=== PATIENT | female | born 1995 | race Two or more races ===

== ENCOUNTER 2020-04-25 20:58 | Outpatient (CLI) | payer MEDICAID ==
[2020-04-25 21:37] LABS: APPEARANCE,URINE CLOUDY; BILIRUBIN,URINE NEGATIVE (NEGATIVE); COLOR,URINE YELLOW; GLUCOSE, URINE NEGATIVE (NEGATIVE); KETONES,URINE NEGATIVE (NEGATIVE); LEUKOCYTE ESTERASE,URINE LARGE (NEGATIVE); NITRITE,URINE NEGATIVE (NEGATIVE); PROTEIN,URINE NEGATIVE (NEGATIVE); URINE SPECIFIC GRAVITY 1.013; UROBILINOGEN,URINE NEGATIVE mg/dL (<2.0)
[2020-04-25 21:58] LABS: URINE AMPHETAMINES SCREEN NEGATIVE; URINE BARBITURATES SCREEN NEGATIVE; URINE BENZODIAZEPINES SCREEN NEGATIVE; URINE COCAINE SCREEN NEGATIVE; URINE MARIJUANA (THC) SCREEN NEGATIVE; URINE METHADONE SCREEN NEGATIVE; URINE PHENCYCLIDINE SCREEN NEGATIVE
--- NOTE | 2020-04-25 23:09 | Non Stress Test Report ---
Non Stress Test Datetime Report Generated by CPN: 04/25/2020 23:08 DEMOGRAPHIC EGA NST: 38.0 INDICATION Indication for Study (NST) Other: lc MONITORING Monitor Explained: Monitor Explained; Test Explained; Patient Verbalized Understanding Time on Monitor: 04/25/2020 21:20 Time off Monitor: 04/25/2020 21:44 NST Duration: 24 NST INTERVENTIONS NST Interventions: Reposition Patient Physician Notified NST: Dr Brambila BABY A: [id number] BABY A Movement : Present Contraction Frequency : 1-5 FHR Baseline : 130 Accelerations : 15X15 Decelerations : None Variability : Moderate 6-25bpm NST Review: Meets Criteria for Reactive NST NST Review and Verified By : JAMISON Small Results: Reactive NST REPORT Report Trigger: Send Report
== END 2020-04-25 23:06 | disposition home or self-care (01) ==
LOC: LC 20:58
PROVIDERS: ATTEND Obstetrics & Gynecology Gynecology
DX: Z34.93 Encounter for supervision of normal pregnancy, unspecified, third trimester (principal)
CPT/HCPCS: 59025; 80307; 81005

== ENCOUNTER 2020-04-30 23:14 | Inpatient (IN) | payer MEDICAID ==
[2020-04-30 23:56] LABS: APPEARANCE,URINE SLIGHTLY-CLOUDY; BILIRUBIN,URINE NEGATIVE (NEGATIVE); COLOR,URINE YELLOW; GLUCOSE, URINE NEGATIVE (NEGATIVE); KETONES,URINE NEGATIVE (NEGATIVE); LEUKOCYTE ESTERASE,URINE TRACE (NEGATIVE); NITRITE,URINE NEGATIVE (NEGATIVE); PROTEIN,URINE NEGATIVE (NEGATIVE); URINE SPECIFIC GRAVITY 1.015; UROBILINOGEN,URINE NEGATIVE mg/dL (<2.0)
[2020-05-01 00:17] LABS: URINE AMPHETAMINES SCREEN NEGATIVE; URINE BARBITURATES SCREEN NEGATIVE; URINE BENZODIAZEPINES SCREEN NEGATIVE; URINE COCAINE SCREEN NEGATIVE; URINE MARIJUANA (THC) SCREEN NEGATIVE; URINE METHADONE SCREEN NEGATIVE; URINE PHENCYCLIDINE SCREEN NEGATIVE
--- NOTE | 2020-05-01 00:49 | Non Stress Test Report ---
Non Stress Test Datetime Report Generated by CPN: 05/01/2020 00:48 DEMOGRAPHIC EGA NST: 38.5 INDICATION Indication for Study (NST) Other: LC URINE RESULTS Urine Protein, NST: Negative Urine Ketones - NST: Negative Urine Glucose - NST: Negative Urine Blood - NST: Negative MONITORING Monitor Explained: Monitor Explained; Test Explained; Patient Verbalized Understanding Time on Monitor: 04/30/2020 23:30 Time off Monitor: 05/01/2020 00:01 NST Duration: 31 NST INTERVENTIONS NST Interventions: PO Hydration Physician Notified NST: Gordon BABY A: [id number] BABY A Movement : Present Contraction Frequency : 3-10 FHR Baseline : 135 Accelerations : 15X15 Decelerations : None Variability : Moderate 6-25bpm NST Review: Meets Criteria for Reactive NST NST Review and Verified By : Elinor Polk RN Results: Reactive NST REPORT Report Trigger: Send Report
[2020-05-01] MEDS ORDERED: RINGERS SOLUTION,LACTATED 1,000 ML IV PRN (01:42)
[2020-05-01] MEDS ORDERED: OXYTOCIN/0.9 % SODIUM CHLORIDE 30 UNIT/500 ML RTUINJ ONE (01:44)
[2020-05-01] MEDS ORDERED: LIDOCAINE 1% INJ-PF (10 MG/ML) 30 ML SDV ONE ×2 (01:44→10:47)
[2020-05-01] MEDS ORDERED: OXYTOCIN 10 UNIT/ML VIAL ONE ×2 (01:44→10:47)
[2020-05-01] MEDS ORDERED: MISOPROSTOL 0.2 MG TABLET ONE ×2 (01:44→10:47)
[2020-05-01 02:35] LABS: ABSOLUTE BASOPHILS # (AUTO) 0.1 10^3/uL (0.0-0.2); ABSOLUTE EOSINOPHILS # (AUTO) 0.4 10^3/uL (0.0-0.6); ABSOLUTE LYMPHOCYTES (AUTO) 2.1 10^3/uL (0.5-4.7); ABSOLUTE MONOCYTES (AUTO) 1.2 10^3/uL (0.1-1.4); ABSOLUTE NEUT (AUTO) 6.6 10^3/uL (1.7-8.2); BASOPHILS % (AUTO) 0.7 % (0-2); EOSINOPHILS % (AUTO) 3.6 % (0-6); HEMATOCRIT 33.8 % (36.0-47.0); HEMOGLOBIN 11.3 g/dL (12.0-15.5); MEAN CORPUSCULAR HEMOGLOBIN 25.4 pg (27.0-33.4); MEAN CORPUSCULAR HGB CONC 33.4 g/dL (32.0-36.0); MEAN CORPUSCULAR VOLUME 76 fl (80-97); MONOCYTES % (AUTO) 11.7 % (3-13); PLATELET COUNT 187 10^3/uL (150-450); RED BLOOD COUNT 4.45 10^6/uL (3.72-5.28); RED CELL DISTRIBUTION WIDTH 14.9 % (11.5-14.0); TOTAL CELLS COUNTED % (AUTO) 100 %; WHITE BLOOD COUNT 10.3 10^3/uL (4.0-10.5)
[2020-05-01] MEDS ORDERED: OXYTOCIN/0.9 % SODIUM CHLORIDE 30 UNIT/500 ML RTUINJ IV PRN ×2 (06:42→11:24)
--- NOTE | 2020-05-01 07:02 | Admission Physical ---
Datetime Report Generated by CPN: 05/01/2020 07:02 CURRENT ADMISSION Chief Complaint: Uterine Contractions Indication for Induction: Not Applicable Admit Impression : Term, Intrauterine ; Active Labor; Intact Membranes Admit Plan: Admit to Unit; Initiate Labor Protocol ALLERGIES Medication Allergies: Yes Medication Allergies: ibuprofen/SV/Anaphylaxis (04/25/2020) Latex: No Latex Allergies OBSTETRICAL HISTORY EDC: 05/09/2020 00:00 : 5 Para: 4 Term: 4 : 0 SAB: 0 IAB: 0 Ectopic: 0 Livin Cesareans: 0 VBACs: 0 Multiple Births: 0 Gestational Diabetes: No Rh Sensitization: No Incompetent Cervix: No SOHA: No Infertility: No ART Treatment: No Uterine Anomaly: No IUGR: No Hx Previous C/S: No Macrosomia: No Hx Loss/Stillborn: No PIH: No Hx : No Placenta Previa/Abruption: No Depression/PP Depression: Yes PTL/PROM: No Post Hemorrhage: Yes Current Procedures: Ultrasound Obstetrical History Comments: G1: 05/2014 37 weeks IOL IUGR 4 lbs 11 oz female G2: 07/2016 38 weeks IOL IUGR 4 lbs 11 oz male retained placenta G3: 05/2017 38 weeks IOL IUGR 4 lbs 0 oz female G4: 06/2018 5 lbs 10 oz IOL IUGR male G5: current hx PPD no meds SEE RECORDS Alcohol: No Marijuana : No Cocaine: No Other Illicit Drugs: No Cigarettes: Never Smoker. 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: No Heart Disease: No Hosp/Surgery: No Autoimmune Disorder: No Anesthetic Complications: No Kidney Disease: No Abnormal Pap Smear: No Neuro/Epilepsy: No Psychiatric Disorders: No Other Medical Diseases: No Hepatitis/Liver Disease: No Significant Family History: No Varicosities/Phlebitis: No Trauma/Violence : No Thyroid Dysfunction: No Medical History Comments: hx depression no meds INFECTIOUS HISTORY Gonorrhea: No Genital Herpes: No Chlamydia: No Tuberculosis: No Syphilis: No Hepatitis: No HIV/AIDS Exposure: No Rash or Viral Illness: No HPV: No PHYSICAL EXAM General: Normal HEENT: Normal Neurologic: Normal Thyroid: Deferred Heart: Normal Lungs: Normal Breast: Deferred Back: Normal Abdomen: Normal Genitourinary Exam: Normal Extremities: Normal DTRs: Normal Pelvic Type: Adequate Vital Signs: Reviewed VAGINAL EXAM Dilatation: 5 Effacement: 60 Station: -2 Contraction Comments: q 4-5, now irreg MEMBRANES Membranes: Intact FETUS A EGA: 38.6 Monitoring: External US FHR- Baseline: 135 Variability: Moderate 6-25bpm Accelerations: 15X15 Decelerations: None FHR Category: Category I Estimated Weight (gm): 2773 Presentation: Vertex Admit Comment: 25yo G with h/o IUGR at term and largest baby was 5#10oz presents for regular contractions. Pt was evaluated then rechecked in 2 hours and significant cervical change noted. Admitted for labor likely protracted as contractions are irreg now after IVF but with cervical exam 5-6 and 4 previous deliveries would not recommend discharge. Admit to labor and delivery and augment with pitocin if needed. Unkown LMP dated by 18wks US. H/o depression - no meds. Admit for delivery. EFW on 04/21 was 2773 (18%) PLANS FOR LABOR AND DELIVERY Labor and Delivery: None Pain Management: None Feeding Preference: Both INFORMED CONSENT Informed Consent Obtained: Vaginal Delivery; Risks, Benefits and Alternatives Discussed Signature: with User ID: [email or web address]
[2020-05-01] MEDS ORDERED: NALBUPHINE HCL INJ 10 MG/1 ML AMPULE ONE (08:38)
[2020-05-01] MEDS ORDERED: NALBUPHINE HCL INJ 10 MG/1 ML AMPULE INJ ONE (08:41)
[2020-05-01] MEDS ORDERED: EPHEDRINE SULFATE INJ 50 MG/1 ML AMPULE ONE (10:40)
[2020-05-01] MEDS ORDERED: ROPIVACAINE HCL 0.2% INJ/PF (2 MG/ML) 20 ML SDV ONE (10:40)
[2020-05-01] MEDS ORDERED: FENTANYL/BUPIVACAINE/NS/PF 0 MCG/0 ML RTUINJ EPI ONE (10:40)
[2020-05-01] MEDS ORDERED: PSEUDOEPHEDRINE HCL 30 MG TABLET PO PRN (11:24)
[2020-05-01] MEDS ORDERED: NA PHOS,M-B/NA PHOS,DI-BA (ADULT) 133 ML ENEMA PR PRN (11:24)
[2020-05-01] MEDS ORDERED: BENZOCAINE/MENTHOL AEROSOL SPRAY 56 ML TOP PRN (11:24)
[2020-05-01] MEDS ORDERED: PROMETHAZINE HCL INJ 25 MG/1 ML VIAL IV PRN (11:24)
[2020-05-01] MEDS ORDERED: GLYCERIN/WITCH HAZEL LEAF 1 EACH MED..WIPE TP PRN (11:24)
[2020-05-01] MEDS ORDERED: ACETAMINOPHEN 650 MG SUPP.RECT PR PRN (11:24)
[2020-05-01] MEDS ORDERED: DIBUCAINE 1% OINTMENT 28 GM TP PRN (11:24)
[2020-05-01] MEDS ORDERED: PROMETHAZINE HCL 25 MG SUPP.RECT PR PRN (11:24)
[2020-05-01] MEDS ORDERED: PROMETHAZINE HCL 25 MG TABLET PO PRN (11:24)
[2020-05-01] MEDS ORDERED: ACETAMINOPHEN 325 MG TABLET PO PRN (11:24)
[2020-05-01] MEDS ORDERED: MAGNESIUM HYDROXIDE SUSP 30 ML UDCUP PO PRN (11:24)
[2020-05-01] MEDS ORDERED: DIPHENHYDRAMINE HCL 25 MG CAPSULE PO PRN (11:24)
[2020-05-01] MEDS ORDERED: ZOLPIDEM TARTRATE 5 MG TABLET PO PRN (11:24)
[2020-05-01] MEDS ORDERED: ACETAMINOPHEN WITH CODEINE #3 TABLET PO PRN (11:24)
[2020-05-01] MEDS ORDERED: MEASLES,MUMPS&RUBELLA VACC/PF 0.5 ML VIAL SUBCUT PRN (11:24)
[2020-05-01] MEDS ORDERED: DIPH/PERTUSS(ACELL)/TETANUS VAC/PF 0.5 ML SYR (>=10YO) IM PRN (11:24)
[2020-05-01] MEDS ORDERED: IBUPROFEN 800 MG TABLET PO SCH (11:30)
[2020-05-01] MEDS ORDERED: ACETAMINOPHEN WITH CODEINE #3 TABLET ONE (11:51)
[2020-05-01] MEDS ORDERED: BENZOCAINE/MENTHOL AEROSOL SPRAY 56 ML ONE (11:52)
[2020-05-01] MEDS: ACETAMINOPHEN WITH CODEINE #3 TABLET PO PRN ×2 (11:55→17:35)
--- NOTE | 2020-05-01 12:31 | Birth Certificate Data ---
Cert Data Datetime Report Generated by CPN: 05/01/2020 12:31 CERTIFICATE DATA Delivery Provider: Pilar Partida MD (04/25/2020 21:25:Kashif Esqueda RN) 47a. Care: Yes (04/25/2020 21:25:Nadia Rodriguez RN) 47b. Date of First Visit: 12/01/2019 00:00 (04/25/2020 21:25:Nadia Rodriguez RN) 47c. Date of Last Visit: 04/21/2020 00:00 (04/25/2020 21:25:Nadia Rodriguez RN) 47d. Number of Visits: 8 (04/25/2020 21:25:Nadia Rodriguez RN) 48a. Number of Prev Live Births: 4 (04/25/2020 21:25:Nadia Rodriguez RN) 48b. Now Livin (04/25/2020 21:25:Nadia Rodriguez RN) 48c. Live Births Now : 0 (04/25/2020 21:25:QS system process) 48d. Date of Last Live : 07/15/2018 00:00 (04/25/2020 21:25:Nadia Rodriguez RN) RISK FACTORS IN THIS 49a. Diabetes: No (04/25/2020 21:25:Nadia Rodriguez RN) 49b. Hypertension: No (04/25/2020 21:25:Nadia Rodriguez RN) 49c. Previous Births: 0 (04/25/2020 21:25:Nadia Rodriguez RN) 49d. Stillborns: No (04/25/2020 21:25:Nadia Rodriguez RN) 49d. IUGR: No (04/25/2020 21:25:Nadia Rodriguez RN) 49e. Infertility Treatment: No (04/25/2020 21:25:Nadia Rodriguez RN) 49f. Previous Cesareans: 0 (04/25/2020 21:25:Nadia Rodriguez RN) Mother's Height 50b. Height Inches: 65 (05/01/2020 01:45:QS system process) Mother's Weight 51b. Weight at Delivery (lbs): 130 (04/30/2020 23:25:QS system process) Infections Present/Treated 53a. Gonorrhea: No (04/25/2020 21:25:Nadia Rodriguez RN) Results this Hospital Visit : Negative (04/25/2020 21:25:Nadia Rodriguez RN) 53b. Syphilis: No (04/25/2020 21:25:Nadia Rodriguez RN) 53c. Chlamydia: No (04/25/2020 21:25:Nadia Rodriguez RN) Results this Hospital Visit: Negative (04/25/2020 21:25:Nadia Rodriguez RN) 53d. Hepatitis B: No (04/25/2020 21:25:Nadia Rodriguez RN) Results this Hospital Visit: Negative (04/25/2020 21:25:Nadia Rodriguez RN) 53e. Hepatitis C: Negative (04/25/2020 21:25:Nadia Rodriguez RN) 53h. Mother Tested for HBsAG: Yes (04/25/2020 21:25:Nadia Rodriguez RN) 53i. Date Tested: 12/18/2019 00:00 (04/25/2020 21:25:Nadia Rodriguez RN) 53j. Test Result: Negative (04/25/2020 21:25:Nadia Michael, RN) Obstetric Procedures 54a, b, c. Obstetric Procedures: Ultrasound (04/25/2020 21:25:Nadia Rodriguez, RN) Cigarette Smoking Cigarette Smoking: Never Smoker. [id number] (04/25/2020 21:25:Nadia Rodriguez RN) Onset of Labor 56a. PROM >12 Hrs: 0.10 (04/25/2020 21:25:QS system process) 56b. Precipitous Labor <3 Hrs: 10 (04/25/2020 21:25:QS system process) 56c. Prolonged Labor > 20 Hrs: 10 (04/25/2020 21:25:QS system process) 57a. Induction of Labor: Augmentation (04/25/2020 21:25:Kashif Esqueda RN) 57c. Non-Vertex Presentation A: Vertex (04/25/2020 21:25:Kashif Esqueda RN) 57d. Steroids - Lung Mat: None (04/25/2020 21:25:Kashif Esqueda RN) 57d. Steroids - Lung Mat: Not Applicable (04/25/2020 21:25:Kashif Esqueda RN) 57g. Moderate/Heavy Meconium: Clear (05/01/2020 10:44:Ema Juarez RN) 57h. Intolerance of Labor: N/A (04/25/2020 21:25:Kashif Esqueda RN) 57i. Epidural/Spinal Anesthesia: None (04/25/2020 21:25:Kashif Esqueda RN) Method of Delivery 58a. Forceps - Unsuccessful A: N/A (04/25/2020 21:25:Kashif Esqueda RN) 58b. Vacuum - Unsuccessful A: N/A (04/25/2020 21:25:Kashif Esqueda RN) 58c. Presentation at 58c. Presentation at - A : Vertex (04/25/2020 21:25:Kashif Esqueda RN) 58c. Presentation at - A : N/A (04/25/2020 21:25:Kashif Esqueda RN) 58c. Presentation at - A : Cephalic (05/01/2020 10:34:Nubia Shahid RN) Final Route and Method of Del 58d. Baby A Route/Delivery: Vaginal (04/25/2020 21:25:Kashif Esqueda RN) 58e. Trial of Labor Attempted: No (04/25/2020 21:25:Kashif Esqueda RN) 58e. Trial of Labor Attempted A: N/A (04/25/2020 21:25:Kashif Esqueda RN) 58e. Trial of Labor Attempted B: N/A (04/25/2020 21:25:Kashif Esqueda RN) Maternal Morbidity 59b. 3rd or 4th Degree Lacs: Labial (04/25/2020 21:25:Kashif Esqueda RN) Birthweight Baby A: 3118 (04/25/2020 21:25:Nubia Shahid RN) 60a. Pounds : 6 (04/25/2020 21:25:QS system process) 60b. Ounces: 14 (04/25/2020 21:25:QS system process) 61. GA at Delivery Baby A: 38.6 (04/25/2020 21:25:Kashif Esqueda RN) : Early Term- 37- 38.6 Weeks (04/25/2020 21:25:QS system process) 62a. 5 Minute Baby A: 9 (04/25/2020 21:25:QS system process)
--- NOTE | 2020-05-01 12:31 | Delivery Summary ---
Del Sum A-C Datetime Report Generated by CPN: 05/01/2020 12:31 DELIVERY PERSONNEL DELIVERY PERSONNEL: [id number] Delivery Doctor:: Pilar Partida MD Labor and Delivery Nurse:: Nubia Shahid RNdirector corporate security Nurse:: Ema Juarez RN Dampener Operator/CYTOLOGY TECHNOLOGIST: Luisa Dumont, SHIP PILOT Dampener Operator/CYTOLOGY TECHNOLOGIST: Lorenza Deluna, SHIP PILOT MATERNAL INFORMATION Delivery Anesthesia: Local Medications After Delivery: Pitocin 30 Units in 500ml NS/D5W Estimated Blood Loss (ml): 150 Delivery QBL: 150 Maternal Complications: None Provider Comments: Called to patients room as she was was complete with urge to push and actively pushing against advice. When I arrived in the room baby was in the hands of the RN and crying vigorously. Cord clamping delayed for 30 seconds. Then cord doubly clamped and cut. Infant placed skin to skin. Repairs done as above. Fundus firm. Both Mother and infant stable LABOR SUMMARY EDC: 05/09/2020 00:00 No. Babies in Womb: 1 Attempted: No Labor Anesthesia: None LABOR INFORMATION Reason for Induction: Not Applicable Onset of Labor: 05/01/2020 01:00 Complete Dilatation: 05/01/2020 10:50 Oxytocin: Augmentation Group B Beta Strep: negative Antibiotics # of Doses: 0 Name of Antibiotic Given: N/A Steroids Given: None Reason Steroids Not Administered: Not Applicable MEMBRANES Membranes Rupture Method: Spontaneous Rupture of Membranes: 05/01/2020 10:50 Length of Rupture (hr): 0.10 Amniotic Fluid Color: Clear Amniotic Fluid Amount: Small Amniotic Fluid Odor: Normal STAGES OF LABOR Stage 1 hr: 9 Stage 1 min: 50 Stage 2 hr: 0 Stage 2 min: 6 Stage 3 hr: 0 Stage 3 min: 5 Total Time in Labor hr: 10 Total Time in Labor min: 1 VAGINAL DELIVERY Episiotomy: None Laceration Extension #1: First Degree Other Laceration: Labial Laceration Repair: Yes Laceration Repair Note: Repaired with 3-0 chromic on an SH needle Sponge Count Correct: Yes Sharps Count Correct: Yes CSECTION DELIVERY Primary Indication: N/A CSection Incidence: N/A CSection Incision: N/A BABY A INFORMATION Infant Delivery Date/Time: 05/01/2020 10:56 Method of Delivery: Vaginal Nurse Controlled Delivery: Yes Born in Route : No : N/A Forceps: N/A Vacuum Extraction: N/A Shoulder Dystocia : No PRESENTATION/POSITION BABY A Presentation: Cephalic Cephalic Presentation: Vertex Vertex Position: Left Occipital Anterior Breech Presentation: N/A PLACENTA INFORMATION BABY A Placenta Delivery Time : 05/01/2020 11:01 Placenta Method of Delivery: Spontaneous Placenta Status: Delivered SCORES BABY A Heart Rate 1 min: >100 bpm Resp Effort 1 min: Slow, Irregular Reflex Irritability 1 min: Cough or Sneeze or Pulls Away Muscle Tone 1 min: Active Motion Color 1 min: Blue/Pale Resuscitation Effort 1 min: Tactile Stimulation SCORE 1 MIN: 7 Heart Rate 5 min: >100 bpm Resp Effort 5 min: Good Cry Reflex Irritability 5 min: Cough or Sneeze or Pulls Away Muscle Tone 5 min: Active Motion Color 5 min: Body [place], Extremities Blue SCORE 5 MIN: 9 INFORMATION BABY A Gestational Age at Delivery: 38.6 Gestational Status: Early Term- 37- 38.6 Weeks Infant Outcome : Liveborn Condition : Stable Infant Sex: Female IDENTIFICATION BABY A Verification Date/Time: 05/01/2020 11:30 ID Band Number: [id number] Mother's Name Verified: Yes RN Verifying : LDick,RN and TMartin,RNC WEIGHT/LENGTH BABY A Infant Birthweight (gm): 3118 Infant Weight (lb): 6 Infant Weight (oz): 14 Length (in): 19.00 Length (cm): 48.26 CORD INFORMATION BABY A No. Cord Vessels: 3 Nuchal Cord : N/A Cord Blood Taken: Yes-For Eval (Mom's Blood Type - or O+) Infant Suction: None ASSESSMENT BABY A Complications: None Physical Findings at Delivery: Within Normal Limits Infant Respirations: Appears Normal Skin to Skin: Yes Skin to Skin Time (min): 45 Garbage Collector Supervisor/ALS Called : No Transferred To: Remains with Mother BABY B INFORMATION : N/A SIGNATURES Signature: with User ID: Brando : with User ID: Brando
[2020-05-01] MEDS: DOCUSATE SODIUM 100 MG CAPSULE PO SCH (17:31)
[2020-05-01] MEDS: FERROUS SULFATE 325 MG TABLET PO SCH (17:31)
[2020-05-01] MEDS: FAMOTIDINE 20 MG TABLET PO SCH (22:25)
[2020-05-02 05:34] LABS: HEMATOCRIT 31.7 % (36.0-47.0); HEMOGLOBIN 10.4 g/dL (12.0-15.5); MEAN CORPUSCULAR HEMOGLOBIN 24.9 pg (27.0-33.4); MEAN CORPUSCULAR HGB CONC 32.7 g/dL (32.0-36.0); MEAN CORPUSCULAR VOLUME 76 fl (80-97); PLATELET COUNT 180 10^3/uL (150-450); RED BLOOD COUNT 4.17 10^6/uL (3.72-5.28); WHITE BLOOD COUNT 12.3 10^3/uL (4.0-10.5)
[2020-05-02] MEDS: ACETAMINOPHEN WITH CODEINE #3 TABLET PO PRN ×2 (05:53→22:36)
[2020-05-02] MEDS: FAMOTIDINE 20 MG TABLET PO SCH ×2 (09:45→22:36)
[2020-05-02] MEDS: DOCUSATE SODIUM 100 MG CAPSULE PO SCH ×2 (09:45→18:11)
[2020-05-02] MEDS: PRENATAL VITAMIN W DHA CAPSULE PO SCH (09:45)
[2020-05-02] MEDS: FERROUS SULFATE 325 MG TABLET PO SCH ×2 (09:45→18:11)
[2020-05-02] MEDS: SENNOSIDES/DOCUSATE 8.6-50 MG 1 EACH TABLET PO SCH (09:45)
--- NOTE | 2020-05-02 09:45 | PDOC PROGRESS REPORT ---
Subjective-OB Progress Note for:: 05/02/20 Subjective: Laying in bed, no c/o, feels tired, hsb will be here soon, eating and drinking, voiding, Physical Exam (OB) Vital Signs: Temp Pulse Resp BP Pulse Ox 98.1 F 87 19 111/46 L 98 05/02/20 09:00 05/02/20 07:38 05/02/20 07:38 05/02/20 07:38 05/02/20 07:38 Intake & Output 05/01/20 05/02/20 05/03/20 06:59 06:59 06:59 Intake Total 1999 Balance 1999 Weight 59 kg - PIH/Pre-Eclampsia Clonus: Negative Headache: Absent Epigastric Pain: No Visual Changes: No - Maternal Morbidity 59. Maternal Morbidity (serious complications experinced by the mother associated with labor and delivery: None of the above - Lochia Lochia Amount: Small 10-25 ml Lochia Color: Rubra/Red - Abdomen Description: Firm Hernia Present: No Fundal Description: Firm, Midline Fundal Height: u/u - u/2 Objective-Diagnostic Laboratory: 05/02/20 05:04 05/02/20 05:04 WBC 12.3 H RBC 4.17 Hgb 10.4 L Hct 31.7 L MCV 76 L MCH 24.9 L MCHC 32.7 RDW 15.0 H Plt Count 180 Assessment and Plan(PN) - Assessment and Plan (2) Depression Qualifiers: Trimester: unspecified trimester Is this a current diagnosis for this admission?: Yes (3) Active labor at term Is this a current diagnosis for this admission?: Yes - Time Spent with Patient Time with patient: Less than 15 minutes Medications reviewed and adjusted accordingly: Yes - Disposition Anticipated Discharge Disposition: Home, Self Care Anticipated Discharge Timeframe: within 24 hours
[2020-05-03] MEDS: ACETAMINOPHEN WITH CODEINE #3 TABLET PO PRN (07:32)
[2020-05-03 07:46] VITALS: BP 102/56
--- NOTE | 2020-05-03 09:09 | PDOC DISCHARGE SUMMARY ---
Impression - Admit/DC Date/PCP Admission Date/Primary Care Provider: 05/01/20 01:44 Discharge Date: 05/03/20 - PP day #2, doing well,, O+, rubella Immune, , UOB, voiding, no complaints - Discharge Diagnosis (1) Active labor at term Is this a current diagnosis for this admission?: Yes (2) Depression Is this a current diagnosis for this admission?: Yes (3) Vaginal delivery Is this a current diagnosis for this admission?: Yes - Additional Information Resuscitation Status: Full Code Discharge Diet: As Tolerated, Regular Discharge Activity: Activity As Tolerated, Pelvic Rest Prescriptions: Acetaminophen with Codeine [Tylenol #3 Tablet] 1 each PO Q4HP PRN #30 tablet PRN Reason: Pain Scale Of 3 Home Medications: Vitamin [-U Multiple Vitamin Capsule] 1 tab PO DAILY 04/25/20 Acetaminophen with Codeine [Tylenol #3 Tablet] 1 each PO Q4HP PRN #30 tablet 05/03/20 HPI Reason(s) for Admission: Onset of Labor Procedures: Ultrasound Intrapartum Procedure(s): Spontaneous Vaginal Delivery Complication(s): Laceration-Labial Hospital Course 59. Maternal Morbidity (serious complications experinced by the mother associated with labor and delivery: None of the above Results Laboratory Results: WBC 12.3 10^3/uL (4.0-10.5) H 05/02/20 05:04 RBC 4.17 10^6/uL (3.72-5.28) 05/02/20 05:04 Hgb 10.4 g/dL (12.0-15.5) L 05/02/20 05:04 Hct 31.7 % (36.0-47.0) L 05/02/20 05:04 MCV 76 fl (80-97) L 05/02/20 05:04 MCH 24.9 pg (27.0-33.4) L 05/02/20 05:04 MCHC 32.7 g/dL (32.0-36.0) 05/02/20 05:04 RDW 15.0 % (11.5-14.0) H 05/02/20 05:04 Plt Count 180 10^3/uL (150-450) 05/02/20 05:04 Lymph % (Auto) 20.0 % (13-45) 05/01/20 02:21 [place] % (Auto) 11.7 % (3-13) 05/01/20 02:21 Eos % (Auto) 3.6 % (0-6) 05/01/20 02:21 Baso % (Auto) 0.7 % (0-2) 05/01/20 02:21 Absolute Neuts (auto) 6.6 10^3/uL (1.7-8.2) 05/01/20 02:21 Absolute Lymphs (auto) 2.1 10^3/uL (0.5-4.7) 05/01/20 02:21 Absolute Monos (auto) 1.2 10^3/uL (0.1-1.4) 05/01/20 02:21 Absolute Eos (auto) 0.4 10^3/uL (0.0-0.6) 05/01/20 02:21 Absolute Basos (auto) 0.1 10^3/uL (0.0-0.2) 05/01/20 02:21 Seg Neutrophils % 64.0 % (42-78) 05/01/20 02:21 Urine Color YELLOW 04/30/20 23:25 Urine Appearance SLIGHTLY-CLOUDY 04/30/20 23:25 Urine pH 6.0 (5.0-9.0) 04/30/20 23:25 Ur Specific [place] 1.015 04/30/20 23:25 Urine Protein NEGATIVE mg/dL (NEGATIVE) 04/30/20 23:25 Urine Glucose (UA) NEGATIVE mg/dL (NEGATIVE) 04/30/20 23:25 Urine Ketones NEGATIVE mg/dL (NEGATIVE) 04/30/20 23:25 Urine Blood NEGATIVE (NEGATIVE) 04/30/20 23:25 Urine Nitrite NEGATIVE (NEGATIVE) 04/30/20 23:25 Urine Bilirubin NEGATIVE (NEGATIVE) 04/30/20 23:25 Urine Urobilinogen NEGATIVE mg/dL (<2.0) 04/30/20 23:25 Ur Leukocyte Esterase TRACE (NEGATIVE) H 04/30/20 23:25 Urine Ascorbic Acid NEGATIVE (NEGATIVE) 04/30/20 23:25 Urine Opiates Screen NEGATIVE 04/30/20 23:25 Urine Methadone Screen NEGATIVE 04/30/20 23:25 Ur Barbiturates Screen NEGATIVE 04/30/20 23:25 Ur Phencyclidine Scrn NEGATIVE 04/30/20 23:25 Ur Amphetamines Screen NEGATIVE 04/30/20 23:25 U Benzodiazepines Scrn NEGATIVE 04/30/20 23:25 Urine Cocaine Screen NEGATIVE 04/30/20 23:25 U Marijuana (THC) Screen NEGATIVE 04/30/20 23:25 RPR NONREACTIVE (NONREACTIVE) 05/01/20 02:21 Blood Type O POSITIVE 05/01/20 02:21 Antibody Screen NEGATIVE 05/01/20 02:21 Plan Plan of Treatment: d/c home, f/up with [facility] in 4 weeks Time Spent: Less than 30 Minutes
[2020-05-03] MEDS: FERROUS SULFATE 325 MG TABLET PO SCH (09:43)
[2020-05-03] MEDS: SENNOSIDES/DOCUSATE 8.6-50 MG 1 EACH TABLET PO SCH (09:43)
[2020-05-03] MEDS: DOCUSATE SODIUM 100 MG CAPSULE PO SCH (09:43)
[2020-05-03] MEDS: PRENATAL VITAMIN W DHA CAPSULE PO SCH (09:43)
[2020-05-03] MEDS: FAMOTIDINE 20 MG TABLET PO SCH (09:43)
== END 2020-05-03 11:59 | disposition home or self-care (01) | DRG 807 ==
LOC: LC 23:14 → LR 05-01 01:44 → 2S 05-01 13:10
PROVIDERS: ADMIT Student in an Organized Health Care Education/Training Program; ATTEND Student in an Organized Health Care Education/Training Program
PROC: 10E0XZZ Delivery of Products of Conception, External Approach (ICD-10-PCS; principal; 2020-05-01)
PROC: 0HQ9XZZ Repair Perineum Skin, External Approach (ICD-10-PCS; 2020-05-01)
DX: O99.344 Other mental disorders complicating childbirth (principal); Z37.0 Single live birth; F32.9 Major depressive disorder, single episode, unspecified; O70.0 First degree perineal laceration during delivery; Z20.828 Contact with and (suspected) exposure to other viral communicable diseases; Z88.8 Allergy status to other drugs, medicaments and biological substances; Z3A.38 38 weeks gestation of pregnancy
CPT/HCPCS: 36415; 80307; 81005; 85025; 85027; 86592; 86850; 86900; 86901; J2300; J2550; J2590; J2795; J3010; J3490

== ENCOUNTER 2020-05-17 15:22 | Emergency (ER) | payer MEDICAID ==
--- NOTE | 2020-05-17 15:44 | ER Document Report ---
ED Medical Screen (RME) - General Chief Complaint: Post Problem Stated Complaint: POST PROBLEM Time Seen by Provider: 05/17/20 15:39 Primary Care Provider: PEDRO BRIZUELA MD [Primary Care Provider] - Follow up as needed Information source: Patient Notes: Patient is 2 weeks after a normal vaginal delivery. Patient complains of bruising to the right popliteal area and pain to the right posterior thigh and popliteal area. Patient denies any chest pain or shortness of breath. Patient denies any trauma to the leg. Patient denies any other abnormal bleeding or bruising. I have greeted and performed a rapid initial assessment of this patient. A comprehensive ED assessment and evaluation of the patient, analysis of test results and completion of the medical decision making process will be conducted by additional ED providers. - Related Data Allergies/Adverse Reactions: ibuprofen Adverse Reaction (Severe, Verified 04/25/20 21:10) Anaphylaxis aspirin Adverse Reaction (Severe, Uncoded 04/25/20 21:09) Anaphylaxis Physical Exam - Vital signs Vitals: Temp Pulse Resp BP Pulse Ox 99.1 F 72 16 129/85 H 100 05/17/20 15:36 05/17/20 15:36 05/17/20 15:36 05/17/20 15:36 05/17/20 15:36 - General General appearance: Appears well, Alert Notes: Patient with tenderness to popliteal area of right leg with very minimal palpation Course - Vital Signs Vital signs: Temp Pulse Resp BP Pulse Ox 99.1 F 72 16 129/85 H 100 05/17/20 15:36 05/17/20 15:36 05/17/20 15:36 05/17/20 15:36 05/17/20 15:36 Doctor's Discharge - Discharge Referrals: PEDRO BRIZUELA MD [Primary Care Provider] - Follow up as needed
[2020-05-17 16:23] LABS: ABSOLUTE BASOPHILS # (AUTO) 0.1 10^3/uL (0.0-0.2); ABSOLUTE EOSINOPHILS # (AUTO) 0.5 10^3/uL (0.0-0.6); ABSOLUTE LYMPHOCYTES (AUTO) 2.5 10^3/uL (0.5-4.7); ABSOLUTE MONOCYTES (AUTO) 0.7 10^3/uL (0.1-1.4); BASOPHILS % (AUTO) 0.6 % (0-2); EOSINOPHILS % (AUTO) 5.9 % (0-6); HEMATOCRIT 40.6 % (36.0-47.0); HEMOGLOBIN 13.2 g/dL (12.0-15.5); LYMPHOCYTES % (AUTO) 28.6 % (13-45); MEAN CORPUSCULAR HEMOGLOBIN 25.1 pg (27.0-33.4); MEAN CORPUSCULAR HGB CONC 32.6 g/dL (32.0-36.0); MEAN CORPUSCULAR VOLUME 77 fl (80-97); MONOCYTES % (AUTO) 8.2 % (3-13); PLATELET COUNT 364 10^3/uL (150-450); RED BLOOD COUNT 5.27 10^6/uL (3.72-5.28); SEGMENTED NEUTROPHILS % (AUTO) 56.7 % (42-78); TOTAL CELLS COUNTED % (AUTO) 100 %; WHITE BLOOD COUNT 8.8 10^3/uL (4.0-10.5)
[2020-05-17 16:29] LABS: INTERNATIONAL RATION (INR) 0.94; PROTHROMBIN TIME 12.8 SEC (11.4-15.4)
[2020-05-17 16:30] LABS: PARTIAL THROMBOPLASTIN TIME 31.9 SEC (23.5-35.8)
[2020-05-17 16:43] LABS: ALBUMIN 4.6 g/dL (3.5-5.0); ALKALINE PHOSPHATASE 97 U/L (38-126); ANION GAP 9 (5-19); ASPARTATE AMINO TRANSFERASE 16 U/L (14-36); BILIRUBIN,DIRECT 0.1 mg/dL (0.0-0.4); BILIRUBIN,TOTAL 0.6 mg/dL (0.2-1.3); BLOOD UREA NITROGEN 13 mg/dL (7-20); CALCIUM 10.1 mg/dL (8.4-10.2); CARBON DIOXIDE 26 mmol/L (22-30); CHLORIDE 105 mmol/L (98-107); GLUCOSE 71 mg/dL (75-110); POTASSIUM 4.2 mmol/L (3.6-5.0)
--- NOTE | 2020-05-17 18:48 | RADIOLOGY REPORT (SQ) ---
EXAM DESCRIPTION: VENOUS UNILATERAL LOWER IMAGES COMPLETED DATE/TIME: 05/17/2020 6:39 pm REASON FOR STUDY: RLE pain COMPARISON: None. TECHNIQUE: Dynamic and static simmons scale and color images acquired of the right leg venous system. S elected spectral images acquired with additional compression and augmentation maneuvers. The contrala teral common femoral vein and saphenofemoral junction were also imaged. Images stored on PACS. LIMITATIONS: None. FINDINGS: COMMON FEMORAL: Normal phasicity, compression and augmentation. No visualized echogenic ma terial on simmons scale. No defects on color images. FEMORAL: Normal compression and augmentation. No visualized echogenic material on simmons scale. No defe cts on color images. POPLITEAL: Normal compression, augmentation. No visualized echogenic material on simmons scale. No defec ts on color images. CALF VESSELS: Normal compression, augmentation. No visualized echogenic material on simmons scale. No de fects on color images. GSV and SSV: Normal compression, augmentation. No visualized echogenic material on simmons scale. No def ects on color images. ANY DEEP VENOUS INSUFFICIENCY: Not evaluated. ANY EVIDENCE OF POPLITEAL CYST: No. OTHER: No other significant finding. CONTRALATERAL COMMON FEMORAL VEIN AND SAPHENOFEMORAL JUNCTION: Normal phasicity, compression and augmentation. No visualized echogenic material on simmons scale. No de fects on color images. IMPRESSION: NO EVIDENCE DVT OR SVT IN THE RIGHT LEG. TECHNICAL DOCUMENTATION: JOB ID: [id number] [employer]- All Rights Reserved Reading location - IP/workstation name: [email or web address]
--- NOTE | 2020-05-17 20:01 | ER Document Report ---
ED General - General Chief Complaint: Post Problem Stated Complaint: POST PROBLEM Time Seen by Provider: 05/17/20 15:39 Primary Care Provider: PEDRO BRIZUELA MD [Primary Care Provider] - Follow up as needed Information source: Patient Notes: 25-year-old female presents to the emergency department with a complaint that she has noticed bruising on her right anterior posterior thigh which she has she is concerned about. She is just given and is x2 week. She denies any recent injury or swelling. She complains of mild tenderness at the area of bruising. - Related Data Allergies/Adverse Reactions: ibuprofen Adverse Reaction (Severe, Verified 04/25/20 21:10) Anaphylaxis aspirin Adverse Reaction (Severe, Uncoded 04/25/20 21:09) Anaphylaxis Past Medical History - General Information source: Patient - Social History Smoking Status: Never Smoker Family History: Reviewed & Not Pertinent Review of Systems - Review of Systems Notes: Constitutional: Negative for fever. HENT: Negative for sore throat. Eyes: Negative for visual changes. Cardiovascular: Negative for chest pain. Respiratory: Negative for shortness of breath. Gastrointestinal: Negative for abdominal pain, vomiting or diarrhea. Genitourinary: Negative for dysuria. Musculoskeletal: Negative for back pain. Skin: See HPI Neurological: Negative for headaches, weakness or numbness. 10 point ROS negative except as marked above and in HPI. Physical Exam - Vital signs Vitals: Temp Pulse Resp BP Pulse Ox 99.1 F 72 16 129/85 H 100 05/17/20 15:36 05/17/20 15:36 05/17/20 15:36 05/17/20 15:36 05/17/20 15:36 - Notes Notes: PHYSICAL EXAMINATION: Physical Exam: General: Well-nourished well-developed in no acute distress HEENT: NC/AT, pupils equal round and reactive to light, MM moist,nares clear, oropharynx clear, airway patent Neck: supple, no adenopathy, no masses. Good range of motion Lungs: clear, no wheezing, no rales no rhonchi CVS: Regular rate and rhythm no murmur gallop or rub Abdomen: Soft, active, nontender, no masses, no hepatosplenomegaly Ext: No edema, clubbing or cyanosis. Neuro: Alert and responsive, moving all 4 extremities on command, cranial nerves intact, no focal findings Skin: Area of bruising noted on the anterior thigh and posterior thigh which is a purple discoloration of mild tenderness. PSYCH: Normal mood, normal affect. Course - Vital Signs Vital signs: Temp Pulse Resp BP Pulse Ox 98.6 F 59 L 15 104/55 L 100 05/17/20 20:19 05/17/20 20:19 05/17/20 20:19 05/17/20 20:19 05/17/20 20:19 - Laboratory Result Diagrams: 05/17/20 15:56 05/17/20 15:56 Laboratory results interpreted by me: 05/17/20 05/17/20 15:56 15:56 MCV 77 L MCH 25.1 L RDW 17.0 H Glucose 71 L 05/17/20 20:10 I have reviewed laboratory data and used this information for the treatment decisions regarding the patient. - Diagnostic Test Radiology reviewed: Image reviewed, Reports reviewed Radiology results interpreted by me: 05/17/20 20:05 Venous Doppler Study 05/17/20 15:43 IMPRESSION: NO EVIDENCE DVT OR SVT IN THE RIGHT LEG. Discharge - Discharge Clinical Impression: Traumatic ecchymosis of right thigh Qualifiers: Encounter type: initial encounter Qualified Code(s): S70.11XA - Contusion of right thigh, initial encounter Condition: Good Disposition: HOME, SELF-CARE Additional Instructions: Please use a warm compress to the area of bruising. Please monitor closely for increasing size or changes within the bruises that might be concerning. You may use Tylenol for pain. Please follow-up with your [facility] CARE INSTRUCTIONS & INFORMATION: Thank you for choosing us for your medical needs. We hope you're satisfied with the care you received. After you leave, you must properly care for your problem and, at the same time, observe its progress. Any condition can change. Some illnesses can change rapidly over hours or days. If your condition worsens, return to the Emergency Department or see your physician promptly. ABOUT YOUR X-RAYS AND EKG'S: If you had an EKG or X-rays taken, they have been read by the Emergency Physician. The X-rays and EKG's will also be read by a Radiologist or [employer] within 24 hours. If discrepancies are noted, you will be notified by telephone. Please be certain the ED has a correct telephone number & address where you can be reached. Also, realize that some fractures or abnormalities do not show up on initial X-rays. If your symptoms continue, see your physician. ABOUT YOUR LABORATORY TEST: If you had laboratory tests, the results have been reviewed by the Emergency Physician. Some test results (for example cultures) may not be available for several days. You will be contacted if any test result shows you need additional treatment. Please be certain the ED has a correct telephone number and address where you can be reached. ABOUT YOUR MEDICATIONS: You will receive instructions on how to take your medicine on the prescription label you receive. Additional information may be provided by the Pharmacy. If you have questions afterwards, call the ED for clarification or further instructions. Some prescribed medications may cause drowsiness. Do not perform tasks such as driving a car or operating machinery without consulting your Pharmacist. If you feel you need a refill of pain medication, your condition will need re-evaluation. Please do not call for a refill of any medication. ABOUT YOUR SIGNATURE: Signature of this document acknowledges to followin. Understanding that you received emergency treatment and that you may be released before al medical problems are known or treated. Please be certain the ED has a correct phone number & address where you can be reached. 2. Acknowledgement that you will arrange for follow-up care as recommended. 3. Authorization for the Emergency Physician to provide information to your follow-up Physician in order to maximize your care. AT ANY TIME, IF YOUR SYMPTOMS CHANGE SIGNIFICANTLY OR WORSEN OR YOU DEVELOP NEW SYMPTOMS, RETURN TO THE EMERGENCY DEPARTMENT IMMEDIATELY FOR RE-EVALUATION. OUR GOAL IS TO PROVIDE EXCELLENT MEDICAL CARE! WE HOPE THAT WE HAVE MET YOUR EXPECTATIONS DURING YOUR EMERGENCY DEPARTMENT VISIT AND THAT YOU FEEL YOU HAVE RECEIVED EXCELLENT CARE! Referrals: PEDRO BRIZUELA MD [Primary Care Provider] - Follow up as needed
[2020-05-17 20:20] VITALS: BP 104/55
== END 2020-05-17 20:20 | disposition home or self-care (01) ==
LOC: ER 15:22
DX: O90.9 Complication of the puerperium, unspecified (principal); S70.11XA Contusion of right thigh, initial encounter; X58.XXXA Exposure to other specified factors, initial encounter
CPT/HCPCS: 36415; 80053; 85025; 85610; 85730; 93971; 99284